=== PATIENT | female | born 1985 | race Caucasian/White ===

== ENCOUNTER 2020-03-02 01:48 | Emergency (ER) | payer OTHER, SELFPAY ==
[2020-03-02] MEDS ORDERED: Lidocaine 1% (PF) 30 ML VIAL ONE (02:03)
== END 2020-03-02 02:25 | disposition home or self-care (01) ==
LOC: NAV ERS 01:48
DX: S01.511A Laceration without foreign body of lip, initial encounter (principal); F17.210 Nicotine dependence, cigarettes, uncomplicated; W18.09XA Striking against other object with subsequent fall, initial encounter
CPT/HCPCS: 12011; J2001